=== PATIENT | female | born 1990 | race Caucasian/White ===

== ENCOUNTER 2022-09-26 12:05 | Outpatient (REF) | payer OTHER, SELFPAY ==
[2022-09-26 13:43] LABS: Hematocrit 36.8 % (37.0-47.0); Hemoglobin 11.8 g/dl (12.0-16.0); Mean Corpuscular HGB Conc 32.1 g/dl (31.0-35.0); Mean Corpuscular Volume 81.1 fL (80.0-98.0); Platelet Count 332 X10*3/uL (160-400); Red Blood Count 4.54 X10*6/uL (4.20-5.50); Red Cell Distribution Width 13.7 % (11.0-16.0); White Blood Count 5.8 X10*3/uL (4.8-10.8)
[2022-09-26 14:05] LABS: Alanine Aminotransferase 57 U/L (0-31); Albumin Level 4.5 g/dL (3.5-5.0); Alkaline Phosphatase 45 U/L (39-117); Anion Gap 12 (12-20); Aspartate Amino Transferase 27 U/L (5-31); Bilirubin Total 0.3 mg/dL (0.0-1.0); Blood Urea Nitrogen 14 mg/dL (9-16); Calcium 9.5 mg/dL (8.4-10.2); Carbon Dioxide 24 mmol/L (22-29); Chloride 107 mmol/L (96-108); Cholesterol 159 mg/dL; Estimated Glomerular Filt Rate > 60; Glucose Fasting 80 mg/dL (60-99); HDL Cholesterol 43 mg/dL; LDL Cholesterol Calculated 101 mg/dl; Potassium 4.4 mmol/L (3.3-5.1); Sodium 139 mmol/L (135-145); Total Protein 6.6 g/dL (6.5-8.0); Triglycerides 75 mg/dL
[2022-09-26 14:24] LABS: TSH reflex Free T4 < 0.01 uIU/mL (0.32-4.0)
[2022-09-26 15:29] LABS: Free T4 (Free Thyroxine) 1.36 ng/dL (0.71-1.85)
== END 2022-09-26 12:06 | disposition home or self-care (01) ==
LOC: HO.WFDLDS 12:05
PROVIDERS: Visit Provider Hospitalist
DX: Z00.00 Encounter for general adult medical examination without abnormal findings (principal)
CPT/HCPCS: 36415; 80053; 80061; 84439; 84443; 85027

== ENCOUNTER 2025-03-03 13:00 | Outpatient (AMB) | payer OTHER, SELFPAY ==
--- NOTE | 2025-03-03 13:03 | A.OFFPC_ITS ---
Vital Signs 03/03/25 13:12 Height 5 ft 3 in Weight 161 lb 6 oz BMI 28.6 BP 112/65 Blood Pressure Location Lt brachial Position Sitting Respiration 16 Pulse 81 Pulse Source Pulse Oximeter Temp 98.6 F Temp Source Oral Pulse Oximetry (%) 99 Oxygen Delivery Method Room Air Intake Visit Reasons: ZION from [place] Intake Note: patient here for ZION from [place] Required: No Is last menstrual period known: Yes Last menstrual period: 02/22/25 Post menopausal: No Patient : No Allergies No Known Allergies Allergy (Verified 03/03/25 13:28) Medication List - Last Reconciled 03/03/25 by Violeta Higgins, COMMERCIAL CREDIT REVIEWER- bupropion HCl XL 300 mg PO QAM citalopram 40 mg PO DAILY clindamycin phosphate 1% topical QAM dextroamphetamine-amphetamine 10 mg 1 tab PO BID dextroamphetamine-amphetamine 30 mg ER (Adderall XR) 1 cap PO QAM famotidine 10 mg PO DAILY levothyroxine 88 mcg PO DAILY spironolactone 100 mg PO DAILY spironolactone 25 mg PO DAILY tretinoin 0.025% appl topical BEDTIME Tobacco use date assessed: 03/03/25 Dental Screening Dental Screen Date: 03/03/25 Did you have a dental visit in the last 12 months?: Yes Did you have a dental problem in the last 6 months where you did not have access to dental care?: No Was dental information given to patient?: Patient has dentist HPI HPI Comments History of Present Illness Details 34 y/o F with hypothyroid, anxiety, depr ession, anemia, elevated LFT, ADHD, chronic GERD, acne FHx: 2 children boys (15 & 7), dad prostate ca, Mom skin ca, 1 sister with Rheum Arthritis Social: lives w/ children; in between jobs 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 - History includes hyperthyroidism, anxi ety, depression, ADHD, anemia, and occasionally elevated liver function tests. - The patient notes skin bumps developin g post-2017 ; no growth observed. Active w/ Derm for acne. - Hypothryoid managed by Endo at [facility] - Familial losses have heightened focus on proactive health management. - Reflux is ongoing since but controlled with medication. - Noted episodic rectal bleeding - Family medical history includes prosta te and skin cancer. - MDD, TEOFILO, ADHD managed by outside pres criber and stable Past Surgical History - Cubital tunnel nerve decompression jose alfredo nick on both elbows. - Two Caesarean sections. Family History - Father with early-stage prostate cance r; underwent surgery. - Mother had a facial spot removed, no c ancer. - Sister diagnosed with rheumatoid arthr itis. - Grandfather had skin cancer; cancer me tastasized. - Grandmother with brain hiral ors and lesions; associated with untreated acid reflux. - Great-grandmother, currently 100, rece ntly declining in health. Social History - Mother of two boys, aged fifteen and s even, living with Donna in a safe home environment. - Recent job loss due to a conflict rega rding unpaid wages; transitioning to a part-time position. 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 - Reports significant familial losses ov er recent years. - Maintains regular appointments with ps ychiatrists and endocrinologists managing chronic conditions. Health Maintenance - Most recent Pap smear approximately tw o to three years ago; subsequent Pap smear deferred due to non-irregular history. - Annual wellness screenings and routine lab evaluations encouraged. - Engages in thyroid management with end ocrinologist; thyroid levels stable. - Under psychiatric care primarily for m edication management. Review of Systems - Cardiovascular: Denies any chest pain or palpitations. - Respiratory: Denies dyspnea or chronic cough. - Gastrointestinal: Reports gastroesopha geal reflux; denies overt abdominal pain. - Derm: Reports skin bumps; concerns pos t-. - Psychiatric: Reports anxiety, depressi on, ADHD; managed with medication. Physical Exam General: Well developed, well nourished, in no acute distress. Appears stated age. Head: Normocephalic, atraumatic. Eyes: Pupils are equal, round and reactive to light and accommodation. Conjunctivae are clear. Vision grossly normal. Ears: TMs clear AU, EACS WNL Nose: Patent, without discharge. Neck: Supple, no adenopathy or thyromegaly. Breast: Edu on SBE Lungs: Clear to auscultation bilaterally. No rales, rhonchi or wheeze noted. Good air flow in all millard. Heart: Regular rate and rhythm. No murmurs, click, rubs or gallops are noted. Abdomen: Bowel sounds present in all quadrants. The abdomen is soft, nontender, with no masses or organomegaly noted. No hernias are noted. : Deferred. Reviewed recommendations for routine GRAIN [employer]ER Pulses: Peripheral pulses are equal and palpable bilaterally. Extremities: No clubbing, cyanosis nor edema is noted. Neurologic: Gait and station normal. Cranial Nerves 2-12 intact. Motor strength grossly symmetrical and intact. No sensory loss. Balance normal. Skin: Raised skin lesions noted, like moles, two are pink, one is brown. Dermatology referral recommended for further evaluation. No other rashes, ulcers, or lesions noted. Turgor is good. Skin color is good. Hair and nails are without abnormalities. Has 3 raised moles on her back in the areas of concern, these are not concerning looking. Psych: Normal eye contact, affect and mood appropriate, and normal interactions. Patient is alert and appropriate to context. Results Pending Discussion Notes During the visit, I discussed the patient's concern about skin lesions, advising her to consult dermatology for further evaluation, although the lesions appear benign. We reviewed the importance and strategies for managing her chronic conditions, including anxiety, depression, and ADHD. Discussed reflux management and the importance of ongoing monitoring due to the family history of medical conditions, specifically prostate and skin cancers. Suggested using the patient portal for efficient communication and follow-up on labs. Encouraged annual physical exams and assured her about the normal occurrence of rectal bleeding related to hemorrhoids, counseling her on monitoring and symptoms that should warrant prompt attention. Assessment and Plan 1. Hypothyroidism - Stable with specialist follow-up. 2. Anxiety and Depression - Psychiatric care; cont 3. ADHD - Current therapy continued. 4. Anemia - update labs today 5. Reflux - Famotidine continued. 6.Moles - Dermatology - active w/ them; next vis it 06/2025, advised to review w/ them. Reassured. . 7. Elevated LFTs - Periodic monitoring today. Patient Instructions - Continue the current medication regime n as prescribed. - Schedule and attend dermatology appoin tment for evaluation of skin bumps. - Follow up with nurse recruiter for rou thiago thyroid status checks. - Report any increase in rectal bleeding or changes in symptoms. - Use the patient portal for appointment scheduling and communication. - RTO 1 YEAR CPE SOONER PRN Consent Patient was informed and verbally consented to the use of an ambient scribe for clinic note documentation during this visit. An additional 20 minutes was spent addressing the problem(s) noted at todays visit. This includes time spent before the visit reviewing the chart, time spent during the visit, and time spent after the visit on documentation reviewing laboratory results, diagnostic imaging, medications, performing a medically necessary evaluation, counseling on diagnoses, care coordination, ordering appropriate tests, ordering appropriate medications, review of tests performed by other providers, reporting test results with the patient, communication with other healthcare providers. [facility] Medical History (Updated 03/03/25 @ 13:53 by Violeta Higgins, [facility]) Acid reflux ADHD Anxiety Depression H/O thyroid disease Mixed anxiety and depressive disorder Surgical History History of Family History (Updated 03/03/25 @ 13:23 by Ramila Cerda MA) Father High blood pressure Paternal Grandfather Cardiovascular disease Maternal Grandmother Thyroid disorder Mental health disorder Paternal Grandmother Brain tumor Maternal Grandfather Skin cancer Sister High blood pressure Social History (Updated 03/03/25 @ 13:12 by Ramila Cerda MA) Housing: Apartment Patient Tobacco Use Status: Never used Tobacco e-Cigarette/Vaping Use: Never Used Second Hand Smoke Exposure: No Substance Use Type: Marijuana service: No Current occupational status: unemployed Current occupational exposures/hazards: No Cognitive needs: No Hearing needs: No Vision needs: No Female Reproductive History Menstrual Date of last menstrual period: 02/22/25 Questionnaire PHQ-9 Over the last 2 weeks, how often have you been bothered by any of the following problems? 1. Little interest or pleasure in doing things: not at all 2. Feeling down, depressed, or hopeless: not at all 3. Trouble falling or staying asleep, or sleeping too much: not at all 4. Feeling tired or having little energy: not at all 5. Poor appetite or overeating: not at all 6. Feeling bad about yourself - or that you are a failure or have let yourself or your family down: not at all 7. Trouble concentrating on things, such as reading the newspaper or watching television: not at all 8. Moving or speaking so slowly that other people could have noticed. Or the opposite - being so fidgety or restless that you have been moving around a lot more than usual: not at all 9. Thoughts that you would be better off or of hurting yourself in some way: not at all Total score: 0 Depression Screening Interpretation: Negative Depression Screening Done: Yes 28964 - PHQ-9 Billing: Yes Source: Developed by Drs. Bhargav Koenig, Becky Pace, Kota Carney and colleagues, with an educational milena from [employer]. Thrive Questionnaire Date Thrive assessed: 03/03/25 I am a: Patient What is your living situation today?: I have a steady place to live Within the past 12 months, did the food you bought not last and you didn't have the money to get more?: Never true Within the past 12 months, did you worry whether your food would run out before you got money to buy more?: Sometimes True Do you have trouble paying for medicines?: I choose not to answer this question Do you have trouble getting transportation to medical appointments?: No Do you have trouble paying your heating and electricity bill?: No Do you have trouble taking care of your child, family member or friend?: No Do you have trouble with day-to-day activities such as bathing, preparing meals, shopping, managing finances, etc.?: No Are you currently unemployed and looking for a job?: No Are you interested in more education?: Yes Please select the resources that you would like help with: None Currently or been in a relationship where the following occur: No concerns reported THRIVE Score: 1 AUDIT C Alcohol Use Questionnaire (AUDIT-C) 1. How often do you have a drink containing alcohol?: Never 3. How often do you have six or more drinks on one occasion?: Never Total Score: 0 Score Reviewed/Action Taken: Yes TEOFILO-7 AMB Questionnaire TEOFILO-7 Date TEOFILO - 7 assessed: 03/03/25 Feeling nervous, anxious, or on edge: 1 = Several days Not being able to stop or control worryin = Several days Worrying too much about different things: 0 = Not at all Trouble relaxin = Several days Being so restless that it is hard to sit still: 0 = Not at all Becoming easily annoyed or irritable: 0 = Not at all Feeling afraid as if something awful might happen: 0 = Not at all Total TEOFILO-7 score (0-4 normal; 5-9 mild; 10-14 moderate; 15-21 severe): 3 Source: Developed by Drs. Bhargav Koenig, Becky Pace, Kota Carney and colleagues, with an educational milena from [employer]. TEOFILO-7 Assessment Billing TEOFILO-7 Assessment Tool: TEOFILO-7 Assessment 77374 Physical exam (Primary Care) Vital Signs: Last Vital Signs Temp 98.6 F 03/03/25 13:12 Pulse 81 03/03/25 13:12 Resp 16 03/03/25 13:12 BP 112/65 03/03/25 13:12 Pulse Ox 99 03/03/25 13:12 Oxygen Delivery Method Room Air 03/03/25 13:12 BMI result Body Mass Index 28.6 Tobacco/Smoking Status: Tobacco use Status Tobacco use date assessed 03/03/25 03/03/25 13:12 Patient Tobacco Use Status Never used Tobacco 03/03/25 13:12 e-Cigarette/Vaping Use Never Used 03/03/25 13:12 PHQ-9: PHQ-9 Score PHQ-9: Total score 0 03/03/25 13:07 Depression Screening Interpretation: Negative Thrive Assessment: Date of Thrive Assessment Date Thrive assessed 03/03/25 03/03/25 13:07 Currently or been in a relationship where the following occur: No concerns reported Coding Level of Care Code New Pt Level 2 (62750) New Pt Prev Care 18-39yr(64235 Diagnoses Encounter to establish care Z76.89 Normal physical exam Z00.00 Hypothyroidism (acquired) E03.9 TEOFILO (generalized anxiety disorder) F41.1 Moderate episode of recurrent major depressive disorder F33.1 Major depression episode severity: moderate Chronic GERD K21.9 Attention deficit hyperactivity disorder (ADHD), combined type F90.2 Attention deficit-hyperactivity disorder type: combined inattentive- hyperactive Acne vulgaris L70.0 Acne type: acne vulgaris Laboratory exam ordered as part of routine general medical examination Z00.00 Grade I hemorrhoids K64.0 Hemorrhoid type: first degree Numerous moles D22.9 Mild anemia D64.9 Elevated LFTs R79.89 Additional Codes TEOFILO-7 Assessment Billing - TEOFILO-7 Assessment Tool: TEOFILO-7 Assessment 45654 ([id number]) PHQ-9 - 44151 - PHQ-9 Billing: Yes ([id number]) Assessment & Plan Assessment & Plan (1) Encounter to establish care: Code(s): Z76.89 - Persons encountering health services in other specified circumstances (2) Normal physical exam: Onset Date: ~03/03/25 Code(s): Z00.00 - Encounter for general adult medical examination without abnormal findings Category: Medical (3) Hypothyroidism (acquired): Code(s): E03.9 - Hypothyroidism, unspecified Category: Medical (4) TEOFILO (generalized anxiety disorder): Code(s): F41.1 - Generalized anxiety disorder Category: Medical (5) MDD (major depressive disorder), recurrent episode: Code(s): F33.9 - Major depressive disorder, recurrent, unspecified Category: Medical Qualifiers: Major depression episode severity: moderate Qualified Code(s): F33.1 - Major depressive disorder, recurrent, moderate (6) Chronic GERD: Code(s): K21.9 - Gastro-esophageal reflux disease without esophagitis Category: Medical (7) ADHD: Code(s): F90.9 - Attention-deficit hyperactivity disorder, unspecified type Category: Medical Qualifiers: Attention deficit-hyperactivity disorder type: combined inattentive- hyperactive Qualified Code(s): F90.2 - Attention-deficit hyperactivity disorder, combined type (8) Acne: Code(s): L70.9 - Acne, unspecified Category: Medical Qualifiers: Acne type: acne vulgaris Qualified Code(s): L70.0 - Acne vulgaris (9) Laboratory exam ordered as part of routine general medical examination: Code(s): Z00.00 - Encounter for general adult medical examination without abnormal findings Category: Medical (10) Hemorrhoids: Code(s): K64.9 - Unspecified hemorrhoids Category: Medical Qualifiers: Hemorrhoid type: first degree Qualified Code(s): K64.0 - First degree hemorrhoids (11) Numerous moles: Code(s): D22.9 - Melanocytic nevi, unspecified Category: Medical (12) Mild anemia: Code(s): D64.9 - Anemia, unspecified Category: Medical (13) Elevated LFTs: Code(s): R79.89 - Other specified abnormal findings of blood chemistry Category: Medical Plan . Orders: Orders Comprehensive Met. Panel [facility] - Encounter for general adult medical examination without abnormal findings Microalbumin, Random (w Creat) Today [facility] Z[facility] - Encounter for general adult medical examination without abnormal findings Complete Blood Count no Diff Today [facility] - Encounter for general adult medical examination without abnormal findings Hemoglobin A1c Today [facility] - Encounter for general adult medical examination without abnormal findings IRON PROFILE [facility] - Encounter for general adult medical examination without abnormal findings Lipid Panel Today [facility] - Encounter for general adult medical examination without abnormal findings Vitamin B12 and Folate Today Violeta Higgins [facility] Z00.00 - Encounter for general adult medical examination without abnormal findings Vitamin D 25-OH Total Today Violeta Higgins [facility] Z00.00 - Encounter for general adult medical examination without abnormal findings Medications: Changed From levothyroxine 100 mcg PO DAILY 90 tabs 1RF E03.9 - Hypothyroidism, unspecified To levothyroxine 88 mcg PO DAILY E03.9 - Hypothyroidism, unspecified Jia Smith NP Patient Instructions: Walk-In Care (Urgent Care): We Make it Easy Walk-in for urgent medical issues such as: ? Seasonal Allergies ? Insect Bites ? Cough ? Diarrhea ? Acute Asthma Attacks ? Back, Knee or Joint Pain ? Ear Infection ? Fever without a Rash ? Headaches ? Nausea ? [place] Eye, Rash or Skin Irritation ? Sore Throat ? Sports Physicals ? Vomiting Most insurances are accepted. Patients do not need to be part of the [facility] to seek care at the walk-in clinic. Locations [facility] [address], [place] [address] ? [phone] [facility] Walk-In Care in [place] provides services to ages 18 and over. Open Friday-Friday: 8 a.m. to 5 p.m. and Friday: 9 a.m. to 3 p.m.* *Hours may vary due to staffing availability. To confirm Walk-In Care hours in [place], please call [phone]. [address] [place] [address] ? [phone] [facility] Walk-In Care in [place] provides services to ages 12 and over. Open Friday-Friday: 8 a.m. to 5 p.m. Hours may vary due to staffing availability. To confirm Walk-In Care hours in [place], please call [phone]. LABORATORY SERVICES: [facility] Lab ? Primary Location [address] [place] [address] Friday through Friday 6:00 AM ? 5:00 PM Friday 7:00 AM ? 11:00 AM* [phone] The [facility] Lab is centrally located near the front entrance of the [facility] for easy outpatient access. Convenient parking is provided for outpatients. *Hours may vary due to staffing availability. To confirm Laboratory hours for any location, please call [phone]. Offsite Location For your convenience, we offer offsite laboratory draw stations at the following locations: [address] [place] [address] ? [address], [address] Friday through Friday 7:30 AM ? 1:00 PM* [phone] *Hours may vary due to staffing availability. To confirm Laboratory hours for any location, please call [phone]. [place] ? [address] Friday through Friday 6:00 AM ? 3:30 PM* Friday 6:30 AM ? 3 PM* [phone] *Hours may vary due to staffing availability. To confirm Laboratory hours for any location, please call [phone] [place] [address] Friday through Friday 7:30 AM ? 4:00 PM* [phone] *Hours may vary due to staffing availability. To confirm Laboratory hours for any location, please call [phone] [place] [address] Friday through 9:00 AM ? 4:00 PM* *Hours may vary due to staffing availability. To confirm Laboratory hours for any location, please call [phone]. Appointments are not necessary. Walk-ins are welcome. Like all the departments throughout the [facility], our Lab undergoes frequent reviews to ensure the quality and accuracy of test results, and our staff takes special pride in its status as a nationally accredited facility. Patient Portal: ONE PATIENT. ONE RECORD. BETTER CARE. [facility] has a fully integrated, cutting- edge mobile electronic health information system that has revolutionized the way we care for our patients and manage our organization. This system improves communication and coordination enabling us to provide safe, higher-quality care, and an overall positive experience for staff and patients. Our first priority, as always, is to deliver the highest quality care possible. The system is running in the background supporting that priority. This portal is for all [facility] services and practices. If you are experiencing any technical difficulties with enrolling or logging into the Patient Portal please complete the [facility] Patient Portal Technical Support Form. [facility] now offers a new secure on-line interactive tool for patients to review their health information ? ?Patient Portal. This interactive web portal will enable patients and their families to take an active role in their care by providing easy, secure access to their health information via the internet. The Patient Portal provides patients with instant access to their health information, including laboratory results, medications, allergies, demographic information, visit history, and more. In addition to managing their own care, parents and health care proxies with authorized consent will appreciate the ability to access the records of those individuals for whom they provide care. Please note: if you wish to gain access (Proxy) to another patient?s portal, you will be required to come to the Medical Records Department in person at [facility]. Both the patient giving proxy access and the proxy will need to provide photo identification and complete the appropriate authorization. The Patient Portal also allows track their appointments online. The [facility] Patient Portal also saves patients time by allowing them to submit updates to their demographic and contact information prior to their visits. Portal email notifications will also alert patients to any new activity on their portal, such as test results and new appointments. In order to initially enroll in the [facility] Patient Portal, you will need to enter some required information including the following: * your [facility] Medical Record number * your personal home email address * name * date of Please note: In order to enroll in the [facility] Patient Portal, we need to have your email address on file in your electronic medical record. ?The email address needs to be specific for one person (yourself) in order for your Portal enrollment to be successful. ?You can update your email address in person with our Registration staff when you are registering for a hospital visit. ?Otherwise, you will need to come to the Health Information Management (Medical Records) Department at [facility]. ?We are open from Friday ? Friday from 7:30 a.m. ? 4:30 p.m. ?You will be required to present a photo id. Once you have successfully enrolled in the Patient Portal, you will receive a one-time user id and password for the Portal, sent to your email address. ?This will allow you to log into the Patient Portal within 99 hrs and reset your own logon id and password, and define personal security questions. ?Once your permanent login and password have been set, you can log into the [facility] Patient Portal at any time via the blue button above or from the Portal Logon button on any page of the [facility] website. [facility] and [facility] encourage all of our patients to enroll in Patient Portal as it presents a valuable opportunity for patients and their families to actively participate in their care and stay healthy Welcome to [facility]. ?We look forward to working with you. Health screenings for women You should visit your health care provider from time to time, even if you are healthy. The purpose of these visits is to: Screen for medical issues Assess your risk for future medical problems Encourage a healthy lifestyle Update vaccinations and other preventive care services Help you get to know your provider in case of an illness Information Even if you feel fine, you should still see your provider for regular checkups. These visits can help you avoid problems in the future. For example, the only way to find out if you have high blood pressure is to have it checked regularly. High blood sugar and high cholesterol levels also may not have any symptoms in the early stages. A simple blood test can check for these conditions. There are specific times when you should see your provider or receive specific health screenings. The [place] Preventive Services Task Force publishes a list of recommended screenings. Below are screening guidelines for women ages 18 to 39. BLOOD PRESSURE SCREENING Your blood pressure should be checked at least once every 3 to 5 years if: Your blood pressure is in the normal range (top number less than 120 mm Hg and bottom number less than 80 mm Hg) You don't have risk factors for high blood pressure Ask your provider if you need your blood pressure checked more often if: The top number is 120 to 129 mm Hg or the bottom number is 70 to 79 mm Hg You have diabetes, heart disease, kidney problems, are overweight, or have certain other health conditions You have a first-degree relative with high blood pressure You are Black You had high blood pressure during a If the top number is 130 mm Hg or greater or the bottom number is 80 mm Hg or greater, this is considered stage 1 hypertension. Schedule an appointment with your provider to learn how you can reduce your blood pressure. Watch for blood pressure screenings in your area. Ask your provider if you can stop in to have your blood pressure checked. BREAST CANCER SCREENING Experts do not agree about the benefits of breast self-exams in finding breast cancer or saving lives. Talk to your provider about what is best for you. A screening mammogram is not recommended for most women under age 40. Your provider may discuss and recommend mammograms, MRI scans, or ultrasounds if you have an increased risk for breast cancer, such as: A mother or sister who had breast cancer at a young age (most often starting screening earlier than the age the close relative was diagnosed) You carry a high-risk genetic marker CERVICAL CANCER SCREENING Cervical cancer screening should start at age 21 years unless your provider advises otherwise. After the first test: Women ages 21 through 29 should have a Pap test every 3 years. Exoprts do not agree on whether HPV testing is recommended for this age group. Women ages 30 through 65 should be screened with either a Pap test every 3 years or the HPV test every 5 years or both tests every 5 years (called cotesting ). Women who have been treated for precancer (cervical dysplasia) should continue to have Pap tests for 20 years after treatment or until age 65, whichever is longer. If you have had your uterus and cervix removed (total hysterectomy), and you have not been diagnosed with cervical cancer or precancer (high grade cervical neoplasia), you do not need cervical cancer screening. CHOLESTEROL SCREENING Cholesterol screening should begin at: Age 45 for women with no known risk factors for coronary heart disease Age 20 for women with known risk factors for coronary heart disease Repeat cholesterol screening should take place: Every 5 years for women with normal cholesterol levels More often if changes occur in lifestyle (including weight gain and diet) More often if you have diabetes, heart disease, kidney problems, or certain other conditions DIABETES SCREENING You should be screened for diabetes starting at age 35 and then repeated every 3 years if you have no risk factors for diabetes. Screening may need to start earlier and be repeated more often if you have other risk factors for diabetes, such as: You have a first degree relative with diabetes. You are overweight or have obesity. You have high blood pressure, prediabetes, or a history of heart disease. Screening for diabetes should be done if you are planning to become and you are overweight and have other risk factors such as high blood pressure. DENTAL EXAM Go to the dentist once or twice every year for an exam and cleaning. Your dentist will evaluate if you need more frequent visits. EYE EXAM Have an eye exam every 5 to 10 years before age 40. If you have vision problems, have an eye exam every 2 years or more often if recommended by your provider. You should have an eye exam that includes an examination of your retina (back of your eye) at least every year if you have diabetes. IMMUNIZATIONS Commonly needed vaccines include: Flu shot: get one every year. COVID-19 vaccine: ask your provider what is best for you. Tetanus-diphtheria and acellular pertussis (Tdap) vaccine: have one at or after age 19 as one of your tetanus-diphtheria vaccines if you did not receive it as an adolescent. Tetanus-diphtheria: have a booster (or Tdap) every 10 years. Varicella vaccine: receive 2 doses if you never had chickenpox or the varicella vaccine. Hepatitis B vaccine: receive 2, 3, or 4 doses, depending on your exact circumstances. Measles, mumps, and rubella (MMR) vaccine: receive 1 to 2 doses if you are not already immune to MMR. Your provider can tell you if you are immune. Ask your provider about the human papillomavirus (HPV) vaccine if: You have not received the HPV vaccine in the past You have not completed the full vaccine series (you should catch up on this shot) Ask your provider if you should receive other immunizations if you have certain health problems that increase your risk for some diseases such as pneumonia. INFECTIOUS DISEASE SCREENING Women who are sexually active should be screened for chlamydia and gonorrhea up until age 25. Women 25 years and older should be screened for chlamydia and gonorrhea if at high risk. Screening for hepatitis C: All adults ages 18 to 79 should get a one-time test for hepatitis C. people should be screened at every . Screening for human immunodeficiency virus (HIV): All people ages 15 to 65 should get a one-time test for HIV. Depending on your lifestyle and medical history, you may also need to be screened for infections such as syphilis and HIV, as well as other infections. PHYSICAL EXAM All adults should visit their provider from time to time, even if they are healthy. The purpose of these visits is to: Screen for disease Assess your risk of future medical problems Encourage a healthy lifestyle Update your vaccinations and other preventive care services Maintain a relationship with a provider in case of an illness Your height, weight, and BMI should be checked at every exam. During your exam, your provider may ask you about: Depression and anxiety Diet and exercise Alcohol and tobacco use Safety issues, such as using seat belts, smoke detectors, and intimate partner violence Your medicines and risk for interactions SKIN SELF-EXAM Your provider may check your skin for signs of skin cancer, especially if you're at high risk, such as if you: Have had skin cancer before Have close relatives with skin cancer Have a weakened immune system OTHER SCREENING Talk with your provider about colon cancer screening if you have a strong family history of colon cancer or polyps, or if you have had inflammatory bowel disease or polyps yourself. Routine bone density screening of women under 40 is not recommended.
[2025-03-03 13:12] VITALS: BP 112/65; PULSE 81; RESP 16; TEMP 37; O2SAT 99; BMI 28.6
--- OUTSIDE RECORDS SUMMARY | 2025-03-03 13:12 | XMS_ITS | Clinical Summary ---
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 3 Active citalopram (CELEXA) 40 MG tablet 3 Active clindamycin (CLINDAGEL) 1 % gel Apply small amount QAM 1 Active ADDERALL XR 30 mg 24 hr capsule Take 30 mg by mouth every morning. 3 Active dextroamphetamine-a mphetamine (ADDERALL) 10 mg Tab tablet TAKE 1-2 TABLETS BY MOUTH EVERY EVENING NEEDED 3 Active spironolactone (ALDACTONE) 100 MG tablet Take 100 mg by mouth daily. 3 Active tretinoin (RETIN-A) 0.025 % cream as needed. 1 Active sonrmdvoqjqg-Bn-zlk n-minerals 27-0.4 mg Tab Take by mouth daily. Active levothyroxine (SYNTHROID, LEVOTHROID) 88 MCG tabletIndications:A cquired hypothyroidism TAKE ONE TABLET BY MOUTH EVERY DAY FOR 6 DAYS A WEEK. 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 High TPO. Ultrasound 01/2019 at [facility], no nodule Assessment & Plan (09/19/2024 10:35 PM EST): Has been treated with levothyroxine since 05/2010. TSH was normal in 07/2023.while taking 6 tabs/ week of the 88 mcg levothyroxine=75.4 mc daily average dose. Weight is stable. Brisk reflexes and chronic fine hand tremor. No thyromegaly. -Check TSH today, review labs through patient portal. -Follow-up in 1 year- -reviewed symptoms of under and over replacement, patient to call in the interim if concerned Assessment & Plan (12/18/2023 10:55 PM EDT): Was slightly over replaced in 03/2023 by taking 88 mg levothyroxine daily. Dose was decreased to 6 tablets/week in 04/2023. Follow-up labs in 07/2023 showed normal TSH of 1.02. She denies typical symptoms of under and over replacement. Plan to check labs soon, lab order mailed to patient. For now she will continue the 88 mcg LT4 6 tablets/week. Reviewed symptoms of under and over replacement, patient to call if concerned. Revisit in 6 months. Assessment & Plan (11/05/2022 11:42 AM EDT): Longstanding primary hypothyroidism treated with levothyroxine. Last visit about 2 years ago, old records have not been received. Last labs on 10/24/2022 showed over replacement with 100 mcg levothyroxine daily, TSH less than 0.01, free T4 high normal 1.53, free T3 slightly elevated 466. On exam has some stare, slightly brisk upper extremity DTR and fine bilateral hand tremor. No thyromegaly. Plan to decrease dose to 88 mcg daily. May use up to 100 mcg tablets by taking 6 tablets/week= 86 mcg daily average dose. Repeat TSH in 2 months. Reviewed symptoms of under and over replacement, patient to call if concerned. Social History Tobacco Use Types Packs/Day Years Used Date Smoking Tobacco: Never Smokeless Tobacco: Never Tobacco Cessation:Counseling Given: Not Answered Alcohol Use Standard Drinks/Week Comments Never 0 (1 standard drink = 0.6 oz pur e alcohol) Education Answer Date Recorded Are you interested in more education? Not on shade e 12/06/2022 Are you concerned about learning? Not on file 12/06/2022 No 12/06/2022 No 12/06/2022 Digital Access Answer Date Recorded No 01/04/2023 No 01/04/2023 Reliable internet access at home? Not on file 01/04/2023 Device with a working camera? Not on file Comments Unknown Sex and Gender Information Value Date Recorded Sex Assigned at Female 12/16/2023 2:49 PM EDT Legal Sex Female 11:57 AM EDT Gender Identity Female 12/16/2023 2:49 PM EDT Sexual Orientation Not on file Last Filed Vital Signs Vital Sign Reading Time Taken Comments Blood Pressure 100/60 09/15/2024 11:51 AM EST Pulse 85 09/15/2024 11:51 AM EST Temperature - - Respiratory Rate - - Oxygen Saturation 99% 09/15/2024 11:51 AM EST Inhaled Oxygen Concentration - - Weight 69.9 kg (154 lb) 09/15/2024 11:51 AM EST Height 161.9 cm (5' 3.74 ) 09/15/2024 11:[address] Body Mass Index 26.65 09/15/2024 11:51 AM EST Plan of Treatment Upcoming Encounters Date Type Department Care Team (Late st Contact Info) Description 09/20/2025 11:20 AM EST Office Visit [facility] [address] [place] [address] [place] [id number] Charisma Burns MD [address] [place] [address] [address] [place] [address] Health Maintenance Due Date Last Done Comments POTASSIUM LEVEL 1990 DEPRESSION SCREENING 2002 HEPATITIS C SCREENING 2008 HIV ONE-TIME SCREENING (18-65 YEARS) 2008 PAP SMEAR 06/16/2023 06/16/2020 COVID-19 VACCINE ( season) 2024 07/12/2021, 04/14/2021 TSH LEVEL 09/15/2025 09/15/2024, 05/0 03/2024, 11/05/2022, Additional history exists Adult Td,Tdap Booster 04/08/2027 04/08/2017 , 04/03/2007, 12/03/2001 HIB VACCINES Completed 03/02/1992, 05/11, 04/25/1991, Additional history exists MENINGOCOCCAL VACCINES (ACWY) Completed 04/03/2007 SMOKING STATUS SCREENING (Once After 26 Yrs) Completed 12/17/2023 HEPATITIS A VACCINES Aged Out No long er eligible based on patient's age to complete this topic MENINGOCOCCAL VACCINES (B) Aged Out N o longer eligible based on patient's age to complete this topic PNEUMOCOCCAL VACCINES (0-49 years) Aged Out No longer eligible based on patient's age to complete this topic Medical Devices Not on file Procedures Procedure Name Priority Date/Time Associated Diagnosis Comments TSH WITH REFLEX Routine 09/15/2024 12:34 PM EST Acquired hypothyroidism from Last 3 Months or Most Recently Relevant to Health Maintenance Results * TSH with reflex (09/15/2024 12:34 PM EST) TSH 1.74 0.27 - 4.20 uIU/mL [facility] Blood 09/15/2024 12:3 4 PM EST 09/15/2024 12:52 PM EST us Charisma Burns MD LAB BLOOD ORDERABLES Final Res ult [facility] [address] [place] [address] from Last 3 Months or Most Recently Relevant to Health Maintenance [place] [address] [place] [address] [place] [address] [place] [address] [place] [address] [place] [address] [place] [address] [place] [address] [place] [address] [place] [address] [employer] Care Teams Domestic Laundry Worker Relationship Specialty Start Date End Date Jia Smith NP PCP - General 10/10/22 Additional Source Comments The information contained in this document represents components of the legal health record. It is not the complete legal health record.[facility]
--- OUTSIDE RECORDS SUMMARY | 2025-03-03 13:12 | XMS_ITS | Clinical Summary ---
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 Name Role Phone Vito Smith DO Primary Care Provider [phone] Surgical History Surgery Date Site/Laterality Comments ANKLE SURGERY 07/18/2005 11/13/2005 PROCEDURE: HISTORICAL ANKLE SURGERY TONSILLECTOMY 02/04/07 PROCEDURE: HISTORICAL TONSILLECTOMY OTHER SURGICAL HISTORY PROCEDURE: ARTHROSCOPY PROCEDURE NEC Medical History Medical History Date Comments Pathologic fracture of tibia and fibula DX:Pathologic fracture of ti alba and fibula Depressive disorder, not els ewhere classified DX:Depressive disorder, not elsewhere classified Historical Medical 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/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 Cubital tunnel syndrome of b oth upper extremities 04/28/2018 DX:Cubital tunnel syndrome o f both upper extremities Family History Medical History Relation Name Comments Hyperlipidemia Father Breast cancer Neg Hx Colon cancer Neg Hx Ovarian cancer Neg Hx Pancreatic cancer Neg Hx Prostate cancer Neg Hx Uterine cancer Neg Hx Relation Name Status Comments Father Alive Maternal Grandfather Alive Maternal Grandmother Alive Mother Alive Paternal Grandfather Paternal Grandmother Alive Sister Alive Social History Tobacco Use Types Packs/Day Years Used Date Smoking Tobacco: Former Smokeless Tobacco: Never Alcohol Use Standard Drinks/Week Comments No 0 (1 standard drink = 0.6 oz pur e alcohol) Comments Unknown Sex and Gender Information Value Date Recorded Sex Assigned at Not on file Legal Sex Female 11:43 PM EST Gender Identity Not on file Sexual Orientation Not on file Obstetrics History Plan of Treatment Health Maintenance Due Date Last Done Comments HIV Screening 07/14/2022 Hepatitis C Screening 07/14/2022 Social Influencers of Health Screening 07/14/2022 Cervical Cancer Screening: Pap Smear 06/16/2023 06/16/2020 COVID-19 Vaccine ( season) 2024 Depression Screening 08/11/2024 Influenza Vaccine (#1) 2025 8, 04/22/2017, 07/23/2012, Additional history exists DTaP,Tdap,and Td Vaccines (9 - Td or Tdap) 04/08/2027 04/08/2017, 04/03/2007, 12/03/2001, Additional history exists HIB Vaccines Completed 03/02/1992, 05/11, 04/25/1991, Additional history exists IPV Vaccines Completed 12/02/1994, 09/1991, 03/02/1992, Additional history exists MMR Vaccines Completed 12/04/1995, 03/03/1992 Hepatitis B Vaccines Completed 04/06/2001, 12/30/2000, 11/27/2000 Meningococcal ACWY Vaccine Completed 04/03/2007 HPV Vaccines Completed 12/16/2007, 06/12, 04/03/2007 Varicella Vaccines Completed 07/03/2011, 11/27/2000 Hepatitis A Vaccines Aged Out No long er eligible based on patient's age to complete this topic Meningococcal B Vaccine Aged Out No l onger eligible based on patient's age to complete this topic Pneumococcal Vaccine: Pediatrics (0 to 5 Years) and At-Risk Patients (6 to 49 Years) Aged Out No longer eligible based on patient's age to complete this topic RSV Immunization Patients Under 20 months Aged Out No longer eligible based on patient's age to complete this topic Procedures Procedure Name Priority Date/Time Associated Diagnosis Comments PAP SMEAR Routine 06/16/2020 from Last 3 Months or Most Recently Relevant to Health Maintenance Results * Pap smear (06/16/2020) 06/16/2020 Narrative HISTORICAL TESTING LAB RESULTING AGENCY - 06/20/2020 3:26 PM EST [id number] THINPREP PAP, IMAGED: NEGATIVE FOR SQUAMOUS INTRAEPITHELIAL LESION AND MALIGNANCY . DANIEL LEIVA(ASCP) (CASE ELECTRONICALLY SIGNED 06 20 2020) ADEQUACY: SATISFACTORY ENDOCERVICAL/TRANSFORMATION ZONE COMPONENT PRESENT. SOURCE: THINPREP PAP HPV IF ASCUS, CERVICAL, IMAGED CLINICAL INFORMATION: HPV IF DIAGNOSIS OF ASCUS. PAP HX NEG, LPS 08/29/16 NEG, NO LMP RECORDED [Z12.4, Z01.419] us Ruiz Raza CNChristopher LAB CYTOLOGY ORDERABLES Final Result HISTORICAL TESTING LAB RESULTING AGENCY from Last 3 Months or Most Recently Relevant to Health Maintenance Care Teams Machinist Helper Relationship Specialty Start Date End Date Vito Smith DO [address] [place], [place] PCP - General 06/22/18
--- OUTSIDE RECORDS SUMMARY | 2025-03-03 13:12 | XMS_ITS | Patient Health Record ---
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 Name Role Phone BARBARA DAILEY Unavailable [phone] Allergies No Known Allergies Results Component Value Reference Range Notes PDF Report Reviewed date:02/07/2025 04:58:36 PM Interpretation: Performing Lab:[facility] [place], [address], [address], [place], Phone - [phone], Director - [facility] Notes/Report: HBsAg Screen-[id number] Reviewed date:02/07/2025 04:53:52 PM Interpretation: Performing Lab:[facility] [place], [address], [address], [place], Phone - [phone], Director - [facility] Notes/Report: HBsAg Screen Negative Negative HIV Ab/p24 Ag with Reflex-[id number] Reviewed date:02/07/2025 04:53:47 PM Interpretation: Performing Lab:[facility] [place], [address], [address], [place], Phone - [phone], Director - [facility] Notes/Report: HIV Ab/p24 Ag Screen Non Reactive Non Reactive HIV-1/HIV-2 antibodies and HIV-1 p24 antigen were NOT detected. There is no laboratory evidence of HIV infection. HIV Negative HCV Antibody-[id number] Reviewed date:02/07/2025 04:53:40 PM Interpretation: Performing Lab:[facility] [place], [address], [address], [place], Phone - [phone], Director - [facility] Notes/Report: Hep C Virus Ab Non Reactive Non Reactive HCV antibody alone does not differentiate between previously resolved infection and active infection. Equivocal and Reactive HCV antibody results should be followed up with an HCV RNA test to support the diagnosis of active HCV infection. PDF Report Reviewed date:02/07/2025 04:58:46 PM Interpretation: Performing Lab:[facility] [place], [address], [address], [place], Phone - [phone], Director - [facility] Notes/Report: Clinical Information:SRC: SOURCE NOT INDICATED Chlamydia/GC Amplification Reviewed date:02/07/2025 09:08:09 AM Interpretation: Performing Lab:[facility] [place], [address], [address], [place], Phone - [phone], Director - [facility] Notes/Report: Clinical Information:SRC: SOURCE NOT INDICATED Chlamydia trachomatis, ARLYN Negative Negative Neisseria gonorrhoeae, ARLYN Negative Negative Syphilis RPR w/reflex Reviewed date:02/07/2025 04:53:34 PM Interpretation: Performing Lab:[facility] [place], [address], [address], [place], Phone - [phone], Director - [facility] Notes/Report: RPR Non Reactive Non Reactive Interpretation: Syphilis: RPR with Reflex to RPR Titer and Treponemal Antibodies, Traditional Screening and Diagnosis Algorithm ---- Treponemal RPR RPR, Qn Ab Final Interpretation -------- --------- Non N/A N/A No laboratory evidence Reactive of syphilis. Retest in 2-4 weeks if recent exposure is suspected. -------- --------- Reactive >/=1:1 Non Nontreponemal antibodies Reactive detected. Syphilis unlikely; biological false positive possible. Retest in 2-4 weeks if recent exposure is suspected. -------- --------- Reactive >/=1:1 Reactive Treponemal and nontreponemal antibodies detected. Consistent with past or current (potential early) syphilis. Reason For Referral No Information Medications Medication SIG (Take, Route, Frequency, Duration) Notes Start Date End Date Status Spironolactone 100 MG 1 tablet Orally On ce a day; Duration: 30 day(s) Active Adderall 30 MG 1 tablet Orally Twic e a day Active Citalopram Hydrobromide 40 MG 0.5 tablet Orally Once a day; Duration: 30 day(s) Active Wellbutrin SR 100 MG 1 tablet in the mor theo Orally Once a day; Duration: 30 day(s) Active Plan B One-Step 1.5 MG as directed Orall y; Duration: 1 days 12/12/2022 Active Levothyroxine Sodium 88 MCG 1 tablet in the morning on an empty stomach Orally Once a day Active Social History Tobacco Use: Social History Observation Description Date Details (start date - stop date) Former Smoker NA - NA Tobacco Use/Smoking Question Answer Notes Are you a former smoker How long has it been since you last smoked? > 10 years Alcohol Screen (Audit-C) Question Answer Notes Did you have a drink containing alcohol in the p ast year? No Points 0 Interpretation Negative Problems Problem Type SNOMED Code ICD Code Onset Dates Problem Status W/U Status Risk Notes Problem Excessive and frequent menstruation with regular cycle (N92.0) Active confirmed Problem Autoimmune thyroiditis (11316711) Autoimmune thyroiditis (E06.3) Active confirmed Problem Attention deficit hyperactivity disorder (620261989) Attention-deficit hyperactivity disorder, unspecified type (F90.9) Active confirmed Problem Abnormal uterine bleeding (24692037093544) Abnormal uterine and vaginal bleeding, unspecified (N93.9) Active confirmed Vital Signs Temperature 97.4 degrees Fahrenheit 02/03/2025 Blood pressure diastolic 68 mm Hg 02/03/2025 Height 63 in 02/03/2025 Blood pressure systolic 104 mm Hg 02/03/2025 Weight 164 lbs 02/03/2025 BMI 29.05 kg/m2 02/03/2025 Encounters Encounter Location Date Provider Diagnosis [facility] [address] [place] [address] 02/03/2025 BARBARA DAILEY Encounter for gynecological examination (general) (routine) without abnormal findings Z01.419 ; Encounter for screening for infections with a predominantly sexual mode of transmission Z11.3 ; High risk heterosexual behavior Z72.51 and Encounter for surveillance of other contraceptives Z30.49 Assessments Encounter Date Diagnosis (ICD Code) Assessment Notes Treatment Notes Treatment Clinical Notes Section Notes 02/03/2025 Encounter for screening for infections with a predominantly sexual mode of transmission (ICD-10 - Z11.3) 02/03/2025 Encounter for gynecological examination (general) (routine) without abnormal findings (ICD-10 - Z01.419) During the visit, the following areas of concern were addressed: Discussed cervical cancer screening with either cytology alone every 3 years or high risk HPV co-testing every 5 years as per ASCCP guidelines. Advised continued annual pelvic exams. Patient encouraged to increase her level of exercise. SBE technique encouraged/tau ght. 02/03/2025 High risk heterosexual behavior (ICD-10 - Z72.51) 02/03/2025 Encounter for surveillance of other contraceptives (ICD-10 - Z30.49) Plan Of Treatment Pending Test Test Name Order Date Sonohysterogram 11/20/2021 Test, Urine 12/28/2021 ANTI-HEPATITIS C 11/20/2021 HEP. B SURF. AG 11/20/2021 SYPHILIS TESTING 11/20/2021 HIV AB-AG 4TH GENERATION 11/20/2021 [id number] 12/18/2023 HBsAg Screen-[id number] 12/18/2023 HIV Ab/p24 Ag with Reflex-[id number] 024 Chlamydia/GC Amplification-[id number] 2024 HCV Antibody-[id number] 12/18/2023 Next Appt Details Provider Name:BARBARA TAYLOR Jeana, 02/07/2026 02:30:00 PM, [address], [address], [place], [address], Insurance Providers Payer Name Payer Address Payer Phone Subscriber Number Group Number Insured Name Patient Relationship to Insured Coverage Start Date Coverage End Date [facility] [address] [address] [place] [address] [id number] CHRISTARAVIND DAVID ACOSTA Self - patient is the insured Medical (General) History Medical History History ICD Code Autoimmune thyroiditis E06.3 Attention-deficit hyperactivity disorder , unspecified type F90.9 COVID-19 U07.1 Acne, unspecified L70.9 Surgical History Surgery Date(Month/Year) 05/21/17 Cubital Nerve 10/08/13 Cubital Nerve 12/12/13 10/29/09 Hospitalization History Reason Date(Month/Year) See Surgical Hx
--- OUTSIDE RECORDS SUMMARY | 2025-03-03 13:12 | XMS_ITS ---
Author Name [facility] Organization Unknown Care Team Organization Name Specialty Phone Email Start Date End Da te [facility] 06/18/2022 03/29/2024
== END 2025-03-03 13:50 | disposition home or self-care (01) ==
LOC: HO.HMCFM 13:01
PROVIDERS: PCP Nurse Practitioner Family; Visit Provider Nurse Practitioner Family
DX: Z00.00 Encounter for general adult medical examination without abnormal findings (principal); E03.9 Hypothyroidism, unspecified; F33.1 Major depressive disorder, recurrent, moderate; Z76.89 Persons encountering health services in other specified circumstances; F41.1 Generalized anxiety disorder; K21.9 Gastro-esophageal reflux disease without esophagitis; F90.2 Attention-deficit hyperactivity disorder, combined type; L70.0 Acne vulgaris; K64.0 First degree hemorrhoids; D22.9 Melanocytic nevi, unspecified; D64.9 Anemia, unspecified; R79.89 Other specified abnormal findings of blood chemistry

== ENCOUNTER → 2025-03-03 13:00 | Outpatient (BNVA) | payer OTHER, SELFPAY | PROVIDERS: PCP Nurse Practitioner Family; Visit Provider Nurse Practitioner Family | DX: Z00.00 Encounter for general adult medical examination without abnormal findings (principal); Z76.89 Persons encountering health services in other specified circumstances; E03.9 Hypothyroidism, unspecified; F41.1 Generalized anxiety disorder; F33.1 Major depressive disorder, recurrent, moderate; K21.9 Gastro-esophageal reflux disease without esophagitis; F90.2 Attention-deficit hyperactivity disorder, combined type; L70.0 Acne vulgaris; D22.9 Melanocytic nevi, unspecified; D64.9 Anemia, unspecified; R79.89 Other specified abnormal findings of blood chemistry; Z13.31 Encounter for screening for depression; Z13.39 Encounter for screening examination for other mental health and behavioral disorders | CPT/HCPCS: 96127; 99202; 99385 ==

== ENCOUNTER 2025-03-03 13:53 | Outpatient (REF) | payer OTHER, SELFPAY ==
[2025-03-03 17:55] LABS: Hematocrit 39.1 % (37.0-47.0); Hemoglobin 12.8 g/dl (12.0-16.0); Mean Corpuscular HGB Conc 32.7 g/dl (31.0-35.0); Mean Corpuscular Hemoglobin 27.8 pg (27.0-33.0); Mean Corpuscular Volume 85.0 fL (80.0-98.0); NRBC Abs Auto 0.000 X10*3/uL (0.0-0.012); NRBC Pct Auto 0.0 /100WBC (0.0-0.2); Platelet Count 283 X10*3/uL (160-400); Red Blood Count 4.60 X10*6/uL (4.20-5.50); White Blood Count 4.5 X10*3/uL (4.8-10.8)
[2025-03-03 17:57] LABS: Hemoglobin A1C 102.3047 umol/L; Total Hemoglobin (HGBA1C) 3312.7760 umol/L
[2025-03-03 18:02] LABS: Alanine Aminotransferase 18 U/L (0-31); Albumin Level 4.9 g/dL (3.5-5.0); Alkaline Phosphatase 49 U/L (39-117); Anion Gap 9 (12-20); Aspartate Amino Transferase 22 U/L (5-31); Blood Urea Nitrogen 16 mg/dL (9-16); Calcium 9.3 mg/dL (8.4-10.2); Carbon Dioxide 26 mmol/L (22-29); Chloride 108 mmol/L (96-108); Cholesterol 151 mg/dL (<200); Estimated Glomerular Filt Rate > 60; HDL Cholesterol 42 mg/dL (>40); Iron 56 mcg/dL (30-160); Percent Iron Saturation 18 % (15-50); Potassium 4.3 mmol/L (3.3-5.1); Sodium 139 mmol/L (135-145); Total Iron Binding Capacity 310 mcg/dL (228-428); Total Protein 7.3 g/dL (6.5-8.0); Triglycerides 69 mg/dL (<150); Unsaturated Iron Binding 254 ug/dL
[2025-03-03 18:02] LABS: Microalbum/Creatinine Ratio Ur 8.1 ug/mg cr (<30)
[2025-03-03 18:21] LABS: Folate 13.9 ng/mL (> or = 4.0); Vitamin B12 375 pg/mL (200-900)
== END 2025-03-03 13:54 | disposition home or self-care (01) ==
LOC: HO.WFDLDS 13:53
PROVIDERS: Visit Provider Nurse Practitioner Family
DX: Z00.00 Encounter for general adult medical examination without abnormal findings (principal)
CPT/HCPCS: 36415; 80053; 80061; 82043; 82306; 82570; 82607; 82746; 83036; 83540; 85027